=== PATIENT | male | born 1945 | race Caucasian/White ===

== ENCOUNTER 2022-11-09 19:20 | Outpatient (CLI) | payer MEDICARE, BC, SELFPAY ==
[2022-11-09 19:30] LABS: Chloride Point of Care* 97 mmol/L (98-109); Potassium Point of Care* 3.6 mmol/L (3.5-4.9); Sodium Point of Care* 133 mmol/L (138-146)
[2022-11-09 19:31] LABS: Blood Urea Nitrogen POC* 16 mg/dl (8-26); Carbon Dioxide Point of Care* 24 mmol/L (20-32); Creatinine Point of Care* 0.9 mg/dl (0.6-1.3); Glucose IStat Point of Care 120 mg/dl (60-115); Ionized Calcium Point of Care* 1.29 mmol/L (1.11-1.33)
[2022-11-12 09:30] LABS: Adenovirus PCR Not Detected; Astrovirus PCR Not Detected; Campylobacter PCR Not Detected; Cryptosporidium PCR Not Detected; Cyclospora cayetanensis PCR Not Detected; Entamoeba histolytica PCR Not Detected; Enteroaggregative E coli PCR Not Detected; Enteropathogenic E coli PCR Not Detected; Enterotoxigenic E coli PCR Not Detected; Giardia lamblia PCR Not Detected; Norovirus Gi/GII PCR Not Detected; Plesiomonas shig PCR Not Detected; Rotavirus A PCR Not Detected; Salmonella PCR Not Detected; Sapovirus PCR Not Detected; Shiga toxin E coli PCR Not Detected; Shigella/Enteroinvasive E coli Not Detected; Vibrio PCR Not Detected; Vibrio cholerae PCR Not Detected; Yersinia enterocolitica PCR Not Detected
== END 2022-11-09 19:21 | disposition home or self-care (01) ==
PROVIDERS: Visit Provider Student in an Organized Health Care Education/Training Program
DX: R19.7 Diarrhea, unspecified (principal)
CPT/HCPCS: 87505

== ENCOUNTER 2022-11-10 09:37 | Emergency (ER) | payer MEDICARE, BC, SELFPAY ==
[2022-11-10 09:47] VITALS: BP 138/82; PULSE 113; RESP 18; TEMP 36.4; O2SAT 97; BMI 31.5
--- NOTE | 2022-11-10 10:07 | ED.GENADULT ---
HPI - General Adult General Date Seen: 11/10/22 Stated complaint: Diarrhea/wrists pain Time Seen by Provider: 11/10/22 09:53 Source: patient Mode of arrival: ambulatory Limitations: no limitations History of Present Illness HPI narrative: Patient is a 77-year-old male who is here with a 1-2 week history of diarrhea. He says prior to that he had cough and cold symptoms. He was not tested for COVID. The cold symptoms have resolved but he has now had diarrhea. He says his stools are watery, no bloody or black stools. He has not had abdominal pain, nausea or vomiting. He was seen in urgent care yesterday, had a sodium of 133, labs were otherwise unremarkable including a CBC and basic metabolic panel. He says that his daughter wanted him to come to the ER today. He has not felt significantly weak or lightheaded. He has not had chest pain or difficulty breathing. He has not had urinary symptoms. He denies recent antibiotics, travel, or concerns about water. He says he drinks mostly bottled water, and says that his water at home is the best water in the world. [place] and I do believe has well water. Related Data Home Medications Medication Instructions Recorded Confirmed chlorthalidone 25 mg tablet mg 11/10/22 gemfibrozil 600 mg tablet mg 11/10/22 ibuprofen 800 mg tablet mg 11/10/22 lisinopril 20 mg tablet mg 11/10/22 metoprolol tartrate 25 mg tablet mg 11/10/22 omeprazole 20 mg capsule,delayed mg 11/10/22 release rosuvastatin 10 mg tablet mg 11/10/22 Previous Rx's Medication Instructions Recorded loperamide 2 mg tablet (Imodium 2 mg PO QID PRN loose stool #7 tabs 11/10/22 A-D) Allergies Allergy/AdvReac Type Severity Reaction Status Date / Time No Known Drug Allergies Allergy Verified 11/09/22 19:02 Review of Systems Status of ROS: Reports: 10 or more systems reviewed and unremarkable except as noted in History and below [facility] Social History Smoking Status: Never smoker Exam Narrative: Exam Narrative: Vital signs as noted above. In general, an alert, well-appearing patient. Head: Normocephalic, atraumatic. Eyes: Pupils are equal reactive. Extraocular movements are full. Conjunctivae are normal. ENT: Mucous membranes are moist. Throat is normal. Neck: Supple without lymphadenopathy. Heart: Regular rate and rhythm. No murmur or rub. Lungs: Clear bilaterally. No increased work of breathing, crackles or wheezes. Abdomen: Abdomen is protuberant and soft, nontender to palpation. Bowel sounds present. Extremities: Well perfused. No edema. No calf tenderness. Pulses intact. Neurologic: Patient is alert and oriented to person and place. Speech is fluent. Face is symmetric. Moves all extremities equally. Affect: Normal. Skin: Warm and dry. Well perfused. Const: Vital Signs, click to edit/add: Vital Signs - 24 hr 11/10/22 09:47 Temperature 97.5 F L Pulse Rate [Right Pulse Oximeter] 113 H Respiratory Rate 18 Blood Pressure [Ri ght Upper Arm] 138/82 Pulse Oximetry 97 Oxygen Delivery Me thod Room Air Documenting provider has reviewed patient's vital signs: yes Course Course Hospital Course: Overall he is presenting with nonspecific diarrhea, no features of dysentery. Abdomen is nontender and he is not complaining of any pain. He is tachycardic here, I reviewed his records from yesterday, pulse was 92 at that time. As mentioned, his white count was normal yesterday, sodium was 133 and chloride was 97 at that time. I think it is probably reasonable for him to use Imodium for symptomatic treatment, but I am going to give him some fluids today and just recheck labs to make sure his electrolytes are still reasonable. In the absence of any abdominal pain or tenderness I do not think he likely needs imaging. I will check a C diff as he brought a stool sample with him today, and just some that for a stool culture, ova and parasites today as well. Labs today are most notable for sodium of 129, down a little bit from yesterday. This may be due to his diarrhea, he is also on chlorthalidone which may be contributing. I gave him a L of normal saline here today. His labs otherwise are really unremarkable. White count is normal again at 9.6, hemoglobin is 16.2. Is potassium is 3.4, other electrolytes are unremarkable. LFTs are normal, CRP is 1.2. His C diff was negative. I have gone over things with him. Interestingly, he tells me that he does not read or write. He says he can read very simple things but for the most part his daughter reads things for him. I have sent a prescription for him for Imodium, I think he can try that. He does say that his stool here in the ER was more formed, so perhaps he is getting better on his own. I would like his sodium to be rechecked later in the week to make sure that that is normalizing, particularly with him being on the chlorthalidone. If at any time he has new symptoms such as abdominal pain, fever, vomiting, bloody stools, return for re-evaluation. Stool culture, O&P pending. Discussed however that symptoms are likely viral and will resolve on their own. Vital Signs Vital signs: Initial Vital Signs Temperature 97.5 F L 11/10/22 09:47 Temperature Source Temporal Artery Scan 11/10/22 09:47 Pulse Rate 113 H 11/10/22 09:47 Respiratory Rate 18 11/10/22 09:47 Blood Pressure 138/82 11/10/22 09:47 Blood Pressure Mean 100 11/10/22 09:47 Blood Pressure Position Standing 11/10/22 09:47 Pulse Oximetry 97 11/10/22 09:47 Oxygen Delivery Method 11/10/22 09:47 Vital Signs Temperature 97.5 F L 11/10/22 09:47 Pulse Rate 113 H 11/10/22 09:47 Respiratory Rate 18 11/10/22 09:47 Blood Pressure 138/82 11/10/22 09:47 Pulse Oximetry 97 11/10/22 09:47 Oxygen Delivery Method 11/10/22 09:47 Temperature 97.5 F L 11/10/22 09:47 Pulse Rate 113 H 11/10/22 09:47 Respiratory Rate 18 11/10/22 09:47 Blood Pressure 138/82 11/10/22 09:47 Pulse Oximetry 97 11/10/22 09:47 Oxygen Delivery Method 11/10/22 09:47 Medical Decision Making Lab Data Labs: Lab Results 11/10/22 11/10/22 11/10/22 Range/Units 10:20 10:20 10:20 WBC 9.64 (4.50-11.00) K/uL RBC 5.53 (4.30-5.90) m/uL Hgb 16.2 (13.5-17.5) gm/dL Hct 45.3 (37.0-53.0) % MCV 82 (80-100) fL MCH 29 (26-34) pg MCHC 36 (32-36) gm/dL RDW Coeff of Polina 13.3 (11.5-15.5) % Plt Count 241 (140-440) K/uL Neut % (Auto) 82.5 H (42.0-72.0) % Lymph % (Auto) 8.5 L (20-44) % Kershaw % (Auto) 8.5 (0.0-11.0) % Eos % (Auto) 0.2 (0.0-7.0) % Baso % (Auto) 0.1 (0.0-3.0) % Neut # (Auto) 8.00 H (1.7-7.0) K/uL Lymph # (Auto) 0.80 L (0.90-2.90) K/uL Kershaw # (Auto) 0.80 (0.00-0.90) K/UL Eos # (Auto) 0.02 (0.00-0.50) K/uL Baso # (Auto) 0.01 (0.00-0.30) K/uL Sodium 129 L (135-149) mmol/L Potassium 3.4 L (3.6-5.1) mmol/L Chloride 96 (96-114) mmol/L Carbon Dioxide 21 (20-32) mmol/L BUN 16 (7-30) mg/dL Creatinine 0.7 (0.5-1.5) mg/dL Estimated Creat Clear 56.71 Estimated GFR 95 ml/min Glucose 164 H (60-115) mg/dL Calcium 9.9 (8.4-10.6) mg/dL Total Bilirubin 0.7 (0.1-1.5) mg/dL Direct Bilirubin 0.3 (0.0-0.5) mg/dL AST 32 (12-35) U/L ALT 35 (4-50) U/L Alkaline Phosphatase 56 (40-150) U/L C-Reactive Protein 1.2 H (0.5-1.0) mg/dL Total Protein 7.8 (6.0-8.3) g/dL Albumin 4.4 (3.3-5.0) g/dL Stl C.difficile Tox PCR (Negative) St C. diff Tox Epid 027 (Negative) 11/10/22 Range/Units 11:20 WBC (4.50-11.00) K/uL RBC (4.30-5.90) m/uL Hgb (13.5-17.5) gm/dL Hct (37.0-53.0) % MCV (80-100) fL MCH (26-34) pg MCHC (32-36) gm/dL RDW Coeff of Polina (11.5-15.5) % Plt Count (140-440) K/uL Neut % (Auto) (42.0-72.0) % Lymph % (Auto) (20-44) % Kershaw % (Auto) (0.0-11.0) % Eos % (Auto) (0.0-7.0) % Baso % (Auto) (0.0-3.0) % Neut # (Auto) (1.7-7.0) K/uL Lymph # (Auto) (0.90-2.90) K/uL Kershaw # (Auto) (0.00-0.90) K/UL Eos # (Auto) (0.00-0.50) K/uL Baso # (Auto) (0.00-0.30) K/uL Sodium (135-149) mmol/L Potassium (3.6-5.1) mmol/L Chloride (96-114) mmol/L Carbon Dioxide (20-32) mmol/L BUN (7-30) mg/dL Creatinine (0.5-1.5) mg/dL Estimated Creat Clear Estimated GFR ml/min Glucose (60-115) mg/dL Calcium (8.4-10.6) mg/dL Total Bilirubin (0.1-1.5) mg/dL Direct Bilirubin (0.0-0.5) mg/dL AST (12-35) U/L ALT (4-50) U/L Alkaline Phosphatase (40-150) U/L C-Reactive Protein (0.5-1.0) mg/dL Total Protein (6.0-8.3) g/dL Albumin (3.3-5.0) g/dL Stl C.difficile Tox PCR Negative (Negative) St C. diff Tox Epid 027 PRESUMPTIVE NEGATIVE (Negative) Discharge Plan Discharge Clinical Impression: Diarrhea Patient Disposition: Home, Self-Care Condition: Improved Instructions: Acute Diarrhea (ED) Additional Instructions: Imodium is the medicine I would like you to try for your diarrhea. If you are not getting better, you should see your doctor. If you are getting worse, have a fever, have bleeding, or have pain, come back to the ER. Your sodium is a little low today which may be because of your diarrhea. The Chlorthalidone you take for your blood pressure can also affect your sodium. I would like you to see your doctor later this week to recheck your sodium and make sure it is getting better and not worse. Prescriptions: New loperamide [Imodium A-D] 2 mg tablet 2 mg PO QID PRN (Reason: loose stool) Qty: 7 0RF No Action ibuprofen 800 mg tablet lisinopril 20 mg tablet chlorthalidone 25 mg tablet gemfibrozil 600 mg tablet omeprazole 20 mg capsule,delayed release(DR/EC) rosuvastatin 10 mg tablet metoprolol tartrate 25 mg tablet Follow Up/Referrals: Provider,Not a Local [Primary Care Provider] - Stand Alone Forms: [employer] Info Instructions
[2022-11-10] MEDS: 0.9 % SODIUM CHLORIDE 1000 ml 1,000 ML IV (10:23)
[2022-11-10 10:32] LABS: Basophils Absolute Auto 0.01 K/uL (0.00-0.30); Basophils Percent Auto 0.1 % (0.0-3.0); Eosinophils Absolute Auto 0.02 K/uL (0.00-0.50); Eosinophils Percent Auto 0.2 % (0.0-7.0); Hematocrit 45.3 % (37.0-53.0); Hemoglobin* 16.2 gm/dL (13.5-17.5); Immature Granulocytes Abs Auto 0.02 K/uL (0.00-0.30); Immature Granulocytes Pct Auto 0.2 %; Lymphocytes Percent Auto 8.5 % (20-44); Mean Corpuscular HGB Conc 36 gm/dL (32-36); Mean Corpuscular Hemoglobin 29 pg (26-34); Mean Corpuscular Volume 82 fL (80-100); Monocytes Percent Auto 8.5 % (0.0-11.0); Neutrophils Percent Auto 82.5 % (42.0-72.0); Platelet Count* 241 K/uL (140-440); RDW Coefficient of Variation % 13.3 % (11.5-15.5); Red Blood Count 5.53 m/uL (4.30-5.90); White Blood Count* 9.64 K/uL (4.50-11.00)
[2022-11-10 10:40] LABS: Slide Review Reflex No
[2022-11-10 10:46] LABS: Chloride* 96 mmol/L (96-114)
[2022-11-10 10:47] LABS: Albumin* 4.4 g/dL (3.3-5.0); Potassium* 3.4 mmol/L (3.6-5.1); Sodium* 129 mmol/L (135-149)
[2022-11-10 10:49] LABS: Carbon Dioxide* 21 mmol/L (20-32); Creatinine* 0.7 mg/dL (0.5-1.5); Est. Creatinine Clearance* 56.71; Estimated Glomerular Filt Rate 95 ml/min
[2022-11-10 10:50] LABS: Bilirubin Direct* 0.3 mg/dL (0.0-0.5); Bilirubin Total* 0.7 mg/dL (0.1-1.5); Blood Urea Nitrogen* 16 mg/dL (7-30); Calcium* 9.9 mg/dL (8.4-10.6); Glucose* 164 mg/dL (60-115)
[2022-11-10 10:51] LABS: Alanine Aminotransferase* 35 U/L (4-50); Alkaline Phosphatase* 56 U/L (40-150); Aspartate Amino Transferase* 32 U/L (12-35); Total Protein* 7.8 g/dL (6.0-8.3)
[2022-11-10 10:54] LABS: C Reactive Protein* 1.2 mg/dL (0.5-1.0)
[2022-11-10 12:31] LABS: C.Difficile Negative (Negative); CDIFFEPI 027 PRESUMPTIVE NEGATIVE (Negative)
[2022-11-13 16:14] LABS: Ova and Parasite, Fecal Negative (Negative)
== END 2022-11-10 12:13 | disposition home or self-care (01) ==
PROVIDERS: Emergency Provider Emergency Medicine
DX: R19.7 Diarrhea, unspecified (principal)
CPT/HCPCS: 36415; 80048; 80076; 85025; 86140; 87045; 87046; 87077; 87177; 87209; 87427; 87493; 99284; J7030

== ENCOUNTER 2022-12-23 13:05 | Emergency (ER) | payer MEDICARE, SELFPAY ==
[2022-12-23 13:22] VITALS: BP 119/84; PULSE 101; RESP 16; TEMP 36.6; O2SAT 94; BMI 32.0
--- NOTE | 2022-12-23 14:25 | ED_ITS ---
HPI - General Adult General Time Seen by Provider: 14:25 Date Seen: 12/23/22 Chief complaint: Fall/Minor Trauma Stated complaint: Fell, abrasions on face Time Seen by Provider: 12/23/22 13:47 Source: patient Mode of arrival: ambulatory Limitations: no limitations History of Present Illness HPI narrative: Patient is a 77 year white male presents with a fall up the stairs he fell into the wall and hit his left eye into the wall. He feels that has a foreign body sensation. His gross visual acuity is slightly blurred. He has some redness of his conscious and some abrasion near his scleral corneal junction at about the 4 o'clock position. His right eye is unremarkable, is a couple of scratches over his nose and face, he has no nasal pain no headache no loss of consciousness no neurologic complaints. He has no neck pain. He has been awake and alert. He is most concerned about his eye. Related Data Home Medications Medication Instructions Recorded Confirmed chlorthalidone 25 mg tablet mg 11/10/22 gemfibrozil 600 mg tablet mg 11/10/22 ibuprofen 800 mg tablet mg 11/10/22 lisinopril 20 mg tablet mg 11/10/22 metoprolol tartrate 25 mg tablet mg 11/10/22 omeprazole 20 mg capsule,delayed mg 11/10/22 release rosuvastatin 10 mg tablet mg 11/10/22 Previous Rx's Medication Instructions Recorded loperamide 2 mg tablet (Imodium 2 mg PO QID PRN loose stool #7 tabs 11/10/22 A-D) Allergies Allergy/AdvReac Type Severity Reaction Status Date / Time No Known Drug Allergies Allergy Verified 12/23/22 13:31 Review of Systems Status of ROS: Reports: 6 or more systems reviewed and unremarkable except as noted in History and below [facility] Social History Smoking Status: Never smoker Exam Narrative: Exam Narrative: Objective in general floor and in no apparent distress he has a humerus man Vital signs are unremarkable HEENT shows no palpable scalp tenderness no neck pain full range of motion of the neck back chest abdomen unremarkable upper lower extremities unremarkable he is neurologically intact next his HEENT shows a reddened irritated subconjunctival hemorrhage on the left with some raw appearing sclera is gross visual acuity seems normal he is able to move his eyes with extraocular movements he has no other facial asymmetries got several scratches over his nose he has no obvious some of his head nasal hematoma, no nasal pain or nasal bridge pain he has no wounds that need closure. As these are more scratches will simply check on his tetanus status clean them up and have him see the eye doctor. Patient's tetanus is up-to-date Const: Vital Signs, click to edit/add: Vital Signs - 24 hr 12/23/22 13:22 Temperature 97.9 F Pulse Rate [Pulse Oximeter] 101 H Respiratory Rate 16 Blood Pressure [Ri ght Upper Arm] 119/84 Pulse Oximetry 94 Oxygen Delivery Me thod Room Air Course Vital Signs Vital signs: Initial Vital Signs Temperature 97.9 F 12/23/22 13:22 Temperature Source Temporal Artery Scan 12/23/22 13:22 Pulse Rate 101 H 12/23/22 13:22 Pulse Rhythm Regular 12/23/22 13:22 Pulse Strength 3+ Normal 12/23/22 13:22 Respiratory Rate 16 12/23/22 13:22 Blood Pressure 119/84 12/23/22 13:22 Blood Pressure Mean 95 12/23/22 13:22 Blood Pressure Position Sitting 12/23/22 13:22 Pulse Oximetry 94 12/23/22 13:22 Oxygen Delivery Method Room Air 12/23/22 13:22 Vital Signs Temperature 97.9 F 12/23/22 13:22 Pulse Rate 101 H 12/23/22 13:22 Respiratory Rate 16 12/23/22 13:22 Blood Pressure 119/84 12/23/22 13:22 Pulse Oximetry 94 12/23/22 13:22 Oxygen Delivery Method Room Air 12/23/22 13:22 Temperature 97.9 F 12/23/22 13:22 Pulse Rate 101 H 12/23/22 13:22 Respiratory Rate 16 12/23/22 13:22 Blood Pressure 119/84 12/23/22 13:22 Pulse Oximetry 94 12/23/22 13:22 Oxygen Delivery Method Room Air 12/23/22 13:22 Discharge Plan Discharge Clinical Impression: Blunt injury, left eye, Facial abrasion Patient Disposition: Home w/ Parent or Adult Condition: Stable Additional Instructions: Your up-to-date on her tetanus shot, we will clean off here scratches, and heavy see the eye doctor urgently. We have called and they expect you to come for an appointment. Would recommend your daughter drive you there. Return to ED as needed. Would recommend he stay with 1 year family members tonight to have them check on you make sure he has no other complaints of headache or neurologic concern at any time over the next 24 hours. Activity Level: Light activity Discharge Diet: Regular Prescriptions: No Action ibuprofen 800 mg tablet lisinopril 20 mg tablet chlorthalidone 25 mg tablet gemfibrozil 600 mg tablet omeprazole 20 mg capsule,delayed release(DR/EC) rosuvastatin 10 mg tablet metoprolol tartrate 25 mg tablet loperamide [Imodium A-D] 2 mg tablet 2 mg PO QID PRN (Reason: loose stool) Qty: 7 0RF Follow Up/Referrals: Provider,Not a Local [Primary Care Provider] - Stand Alone Forms: [employer] Info Instructions
== END 2022-12-23 14:45 | disposition home or self-care (01) ==
LOC: ED 14:44
PROVIDERS: Emergency Provider Family Medicine
DX: T14.90XA Injury, unspecified, initial encounter (principal); S00.81XA Abrasion of other part of head, initial encounter; W10.9XXA Fall (on) (from) unspecified stairs and steps, initial encounter
CPT/HCPCS: 99282; 99283; 99284

== ENCOUNTER 2025-04-13 07:20 | Outpatient (CLI) | payer MEDICARE, OTHER, SELFPAY ==
--- NOTE | 2025-04-13 09:03 | P.ANES_ITS ---
Anesthesia Charges Start Date/Time Anesthesia Start Date: 04/13/25 Anesthesia Start Time: 08:27 Stop Date/Time Anesthesia Stop Date: 04/13/25 Anesthesia Stop Time: 08:58 Summary Extremes of Age - Over 70 or under 1: INFUSION RN Coding CPT Codes CPT Codes: ANES LWR INTST NDSC NOS - 31762 ([id number]) P3 - PATIENT W/SEVERE SYS DISEASE, QZ - INFUSION RN SVC W/O OCULAR PATHOLOGIST BY Additional Codes: Summary - Extremes of Age - Over 70 or under 1: INFUSION RN ([id number])
--- NOTE | 2025-04-13 09:03 | W.ANESCHARGE ---
Anesthesia Charges Start Date/Time Anesthesia Start Date: 04/13/25 Anesthesia Start Time: 08:27 Stop Date/Time Anesthesia Stop Date: 04/13/25 Anesthesia Stop Time: 08:58 Summary Extremes of Age - Over 70 or under 1: LOADER HELPER SORTING YARD Coding CPT Codes CPT Codes: ANES LWR INTST NDSC NOS - 07162 ([id number]) P3 - PATIENT W/SEVERE SYS DISEASE, QZ - LOADER HELPER SORTING YARD SVC W/O ACADEMIC SUPPORT COORDINATOR BY Additional Codes: Summary - Extremes of Age - Over 70 or under 1: LOADER HELPER SORTING YARD ([id number])
== END 2025-04-13 07:21 | disposition home or self-care (01) ==
PROVIDERS: PCP Family Medicine; Visit Provider Internal Medicine Gastroenterology
DX: Z12.11 Encounter for screening for malignant neoplasm of colon (principal); D12.3 Benign neoplasm of transverse colon; Z86.0101 Personal history of adenomatous and serrated colon polyps
CPT/HCPCS: 00811; 00812; 45385; 88305; 99100; J2704